=== PATIENT | female | born 1945 | race Caucasian/White ===

== ENCOUNTER 2022-01-29 08:40 | Emergency (ER) | payer MEDICARE, BC, SELFPAY ==
[2022-01-29] VITALS (18 sets, daily range): BP systolic 152–199; BP diastolic 80–123; PULSE 63–82; TEMP 37.1; O2SAT 90–94; BMI 46.1
--- NOTE | 2022-01-29 09:16 | CRLHL7_ITS ---
For Patients: As a result of the Century Cures Act, medical imaging exams and procedure reports are released immediately into your electronic medical record. You may view this report before your referring provider. If you have questions, please contact your health care provider. INDICATION: Asthma. TECHNIQUE: AP portable seated chest x-ray. FINDINGS: Minor linear fibrosis or atelectasis at the left lung base. Both lungs are otherwise clear. Normal heart size. Mild spurring of the thoracic spine. Mild degenerative narrowing and spurring of the left glenohumeral joint. IMPRESSION: No acute cardiopulmonary process identified. Dictated by Cornelius Young MD @ 01/29/2022 9:41:23 AM (Electronically Signed)
--- NOTE | 2022-01-29 09:17 | ED_ITS ---
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 She had a cold about a week ago, and whenever she gets a cold she gets asthma triggered. She has not had a cold for quite some time. She was seen in [place] [facility] urgent care noting that her blood pressure was elevated, she had an EKG and a chest x-ray that apparently were reassuring, and she was started on prednisone and was given a nebulizer but this made her very jittery and anxious and she did not take 1 of these home, nor does she use an inhaler. She does feel like her breathing is a little better but she noted her blood pressure is elevated today. On presentation here is 199/116. She has had no fever chills rigors. She was tested for COVID at home but no other test done. No leg swelling edema bleeding or clotting problems no known heart history Related Data Allergies Allergy/AdvReac Type Severity Reaction Status Date / Time No Known Drug Allergies Allergy Verified 01/29/22 09:01 Review of Systems Status of ROS: Reports: 10 or more systems reviewed and unremarkable except as noted in History and below [facility] PFS Social History Smoking Status: Unknown if ever smoked Exam Narrative: Exam Narrative: Objective: Patient denies any chest pain Vital signs show elevated blood pressure 199/116 O2 sat 93% on room air HEENT unremarkable no scleral icterus no facial asymmetry Neck is supple Chest basilar wheezes noted that clear with a deep breath Heart rhythm regular 2/6 systolic murmur occasional ectopic beat noted Abdomen obese benign nontender extremities are no edema Neurologic nonfocal Skin periphery warm and dry. Const: Vital Signs, click to edit/add: Vital Signs - 24 hr 01/29/22 08:57 01/29/22 09:16 01/29/22 09:17 Temperature 98.7 F Pulse Rate 72 Pulse Rate [Left P ulse Oximeter] 71 Blood Pressure Blood Pressure [Ri ght Upper Arm] 199/116 H Pulse Oximetry 93 92 92 Oxygen Delivery Me thod Room Air 01/29/22 09:26 01/29/22 09:27 01/29/22 09:45 Temperature Pulse Rate 79 75 75 Pulse Rate [Left P ulse Oximeter] Blood Pressure 184/104 H Blood Pressure [Ri ght Upper Arm] Pulse Oximetry 92 93 93 Oxygen Delivery Me thod 01/29/22 10:00 01/29/22 10:01 01/29/22 10:11 Temperature Pulse Rate 75 82 67 Pulse Rate [Left P ulse Oximeter] Blood Pressure 168/93 H 165/123 H Blood Pressure [Ri ght Upper Arm] Pulse Oximetry 91 92 90 Oxygen Delivery Me thod 01/29/22 10:15 Temperature Pulse Rate 68 Pulse Rate [Left P ulse Oximeter] Blood Pressure Blood Pressure [Ri ght Upper Arm] Pulse Oximetry 90 Oxygen Delivery Me thod Course Vital Signs Vital signs: Initial Vital Signs Temperature 98.7 F 01/29/22 08:57 Temperature Source Temporal Artery Scan 01/29/22 08:57 Pulse Rate 71 01/29/22 08:57 Blood Pressure 199/116 H 01/29/22 08:57 Blood Pressure Mean 143 01/29/22 08:57 Blood Pressure Position Sitting 01/29/22 08:57 Pulse Oximetry 93 01/29/22 08:57 Oxygen Delivery Method 01/29/22 08:57 Vital Signs Temperature 98.7 F 01/29/22 08:57 Pulse Rate 71 01/29/22 08:57 Blood Pressure 199/116 H 01/29/22 08:57 Pulse Oximetry 93 01/29/22 08:57 Oxygen Delivery Method 01/29/22 08:57 Temperature 98.7 F 01/29/22 08:57 Pulse Rate 74 01/29/22 11:02 Blood Pressure 152/80 H 01/29/22 11:02 Pulse Oximetry 93 01/29/22 11:02 Oxygen Delivery Method 01/29/22 08:57 Medical Decision Making MDM Narrative Medical decision making narrative: Patient is slightly improved from her asthma exacerbation from her upper respiratory infection last week. She has been on prednisone small dose for a couple of days. At this point I think I would get a repeat chest x-ray as I do not have access to the prior 1, EKG by my read shows no new ischemic changes she has got limited R-wave progression anteriorly no acute ST T wave changes occasional PVC. Will get laboratory studies give her IV fluid, IV Solu-Medrol. Will withhold a neb at this time due to making her anxious. I will also think giving her a small dose Ativan be helpful as she is quite anxious at 0.5 mg IV. Will also give her a blood pressure medication to help control this. Disposition pending clinical response and laboratory findings. Addendum: Patient's lab studies are reassuring, troponin is negative, CRP is negative, chest x-ray by my read looks unremarkablel PVC. Her EKG by my read shows limited R-wave progression anteriorly but no ischemic changes cage in PVCs. She feels multiple much better, her blood pressure is improved, she is given Lopressor and she had transient diminishment of her pulse into the 40s, but this rapidly improved. She will continue her home blood pressure medications and continue to check her blood pressure twice a day. Update her regular physician within the next 2-4 days. Return to ED sooner problems or concerns. I believe her asthma flare from her URIs improving, also she is negative for viral studies. Lab Data Labs: Lab Results 01/29/22 01/29/22 01/29/22 Range/Units 09:24 09:53 09:53 WBC 8.71 (4.50-11.00) K/uL RBC 5.62 H (4.00-5.20) m/uL Hgb 14.7 (12.0-16.0) gm/dL Hct 46.3 (33.0-51.0) % MCV 82 (80-100) fL MCH 26 (26-34) pg MCHC 32 (32-36) gm/dL RDW Coeff of Genevieve 14.4 (11.5-15.5) % Plt Count 314 (140-440) K/uL Neut % (Auto) 79.6 H (42.0-72.0) % Lymph % (Auto) 12.5 L (20-44) % [place] % (Auto) 7.2 (0.0-11.0) % Eos % (Auto) 0.3 (0.0-7.0) % Baso % (Auto) 0.3 (0.0-3.0) % Neut # (Auto) 6.90 (1.7-7.0) K/uL Lymph # (Auto) 1.10 (0.90-2.90) K/uL [place]fe # (Auto) 0.60 (0.00-0.90) K/UL Eos # (Auto) 0.03 (0.00-0.50) K/uL Baso # (Auto) 0.03 (0.00-0.30) K/uL Abs Immat Gran (auto) 0.01 (0.00-0.30) K/uL Imm/Tot Granulo (auto) 0.1 % Sodium 140 (135-149) mmol/L Potassium 3.4 L (3.6-5.1) mmol/L Chloride 98 (96-114) mmol/L Carbon Dioxide 34 H (20-32) mmol/L BUN 22 (7-30) mg/dL Creatinine 0.8 (0.5-1.5) mg/dL Estimated Creat Clear 40.83 Estimated GFR 77 ml/min Glucose 109 (60-115) mg/dL Calcium 10.5 (8.4-10.6) mg/dL Troponin I (0.01-0.04) ng/mL C-Reactive Protein 0.6 (0.5-1.0) mg/dL SARS-CoV-2 (PCR) Negative SARS-CoV-2 (Negative) Influenza Type A (PCR) Negative PCR FLU A (Negative) Influenza Type B (PCR) Negative PCR FLU B (Negative) RSV (PCR) Negative PCR RSV (Negative) 01/29/22 Range/Units 09:53 WBC (4.50-11.00) K/uL RBC (4.00-5.20) m/uL Hgb (12.0-16.0) gm/dL Hct (33.0-51.0) % MCV (80-100) fL MCH (26-34) pg MCHC (32-36) gm/dL RDW Coeff of Genevieve (11.5-15.5) % Plt Count (140-440) K/uL Neut % (Auto) (42.0-72.0) % Lymph % (Auto) (20-44) % Wolfe % (Auto) (0.0-11.0) % Eos % (Auto) (0.0-7.0) % Baso % (Auto) (0.0-3.0) % Neut # (Auto) (1.7-7.0) K/uL Lymph # (Auto) (0.90-2.90) K/uL Wolfe # (Auto) (0.00-0.90) K/UL Eos # (Auto) (0.00-0.50) K/uL Baso # (Auto) (0.00-0.30) K/uL Abs Immat Gran (auto) (0.00-0.30) K/uL Imm/Tot Granulo (auto) % Sodium (135-149) mmol/L Potassium (3.6-5.1) mmol/L Chloride (96-114) mmol/L Carbon Dioxide (20-32) mmol/L BUN (7-30) mg/dL Creatinine (0.5-1.5) mg/dL Estimated Creat Clear Estimated GFR ml/min Glucose (60-115) mg/dL Calcium (8.4-10.6) mg/dL Troponin I < 0.01 L (0.01-0.04) ng/mL C-Reactive Protein (0.5-1.0) mg/dL SARS-CoV-2 (PCR) (Negative) Influenza Type A (PCR) (Negative) Influenza Type B (PCR) (Negative) RSV (PCR) (Negative) Discharge Plan Discharge Clinical Impression: Asthma exacerbation, Hypertension Patient Disposition: Home, Self-Care Condition: Improved Additional Instructions: Rest, use the prednisone that remains at home, inhaler as needed, update regular doctor within the next 2-4 days. Return to ED sooner problems concerns difficulty with breathing or other concern problems. Would monitor her blood pressure 2 times a day and give that information regular doctor when they consult. Activity Level: Light activity Discharge Diet: Regular Stand Alone Forms: [facility] Info Instructions
[2022-01-29] MEDS: 0.9 % SODIUM CHLORIDE 500 ML 500 ML IV (10:01)
[2022-01-29] MEDS: LORazepam 2 MG/ML inj 0.5 MG IVP (10:01)
[2022-01-29] MEDS: METHYLPREDNISOLONE SOD SUCC 62.5 MG/ML (125) 125 MG IVP (10:03)
[2022-01-29] MEDS: METOPROLOL TARTRATE 1 MG/ML inj 5 MG IVP (10:07)
[2022-01-29 10:08] LABS: Basophils Absolute Auto 0.03 K/uL (0.00-0.30); Basophils Percent Auto 0.3 % (0.0-3.0); Eosinophils Absolute Auto 0.03 K/uL (0.00-0.50); Eosinophils Percent Auto 0.3 % (0.0-7.0); Hematocrit 46.3 % (33.0-51.0); Hemoglobin* 14.7 gm/dL (12.0-16.0); Immature Granulocytes Abs Auto 0.01 K/uL (0.00-0.30); Immature Granulocytes Pct Auto 0.1 %; Lymphocytes Percent Auto 12.5 % (20-44); Mean Corpuscular HGB Conc 32 gm/dL (32-36); Mean Corpuscular Hemoglobin 26 pg (26-34); Mean Corpuscular Volume 82 fL (80-100); Monocytes Percent Auto 7.2 % (0.0-11.0); Neutrophils Percent Auto 79.6 % (42.0-72.0); Platelet Count* 314 K/uL (140-440); RDW Coefficient of Variation % 14.4 % (11.5-15.5); Red Blood Count 5.62 m/uL (4.00-5.20); White Blood Count* 8.71 K/uL (4.50-11.00)
[2022-01-29 10:12] LABS: PCR FLU A Negative PCR FLU A (Negative); PCR FLU B Negative PCR FLU B (Negative); PCR RSV Negative PCR RSV (Negative)
[2022-01-29 10:16] LABS: Slide Review Reflex No
[2022-01-29 10:25] LABS: Chloride* 98 mmol/L (96-114)
[2022-01-29 10:26] LABS: Potassium* 3.4 mmol/L (3.6-5.1); Sodium* 140 mmol/L (135-149)
[2022-01-29 10:28] LABS: Creatinine* 0.8 mg/dL (0.5-1.5); Est. Creatinine Clearance* 40.83; Estimated Glomerular Filt Rate 77 ml/min
[2022-01-29 10:29] LABS: Blood Urea Nitrogen* 22 mg/dL (7-30); Carbon Dioxide* 34 mmol/L (20-32); Glucose* 109 mg/dL (60-115)
[2022-01-29 10:30] LABS: Calcium* 10.5 mg/dL (8.4-10.6)
--- NOTE | 2022-01-29 10:30 | ED.NURSE ---
Addendum entered by Magdiel Bahena RN 01/29/22 10:37: pvc monitor initiated. Original Note: Pt HR dropped to mid-30's, pt A&O, not symptomatic. MD notified. Pt HR back up to mid-60's after approx 1 min, MD updated. Will continue to monitor.
[2022-01-29 10:32] LABS: C Reactive Protein* 0.6 mg/dL (0.5-1.0)
[2022-01-29 10:45] LABS: Troponin I* < 0.01 ng/mL (0.01-0.04)
[2022-01-29 10:50] LABS: SARS PCR* Negative SARS-CoV-2 (Negative)
== END 2022-01-29 11:31 | disposition home or self-care (01) ==
PROVIDERS: Emergency Provider Family Medicine; PCP Physician Assistant
DX: J45.901 Unspecified asthma with (acute) exacerbation (principal); I10 Essential (primary) hypertension
CPT/HCPCS: 36415; 71045; 80048; 84484; 85025; 86140; 87502; 87634; 87635; 93005; 94761; 96374; 96375; 99284; 99285; J2060; J2930; J7120

== ENCOUNTER 2022-06-13 15:09 | Emergency (ER) | payer MEDICARE, BC, SELFPAY ==
[2022-06-13 15:12] VITALS: BP 173/82; PULSE 96; RESP 20; TEMP 36.8; O2SAT 96; BMI 46.1
--- NOTE | 2022-06-13 15:25 | ED.SOB ---
HPI - SOB/Dyspnea General Time Seen by Provider: 15:26 Date Seen: 06/13/22 Chief Complaint: Shortness of Breath/Dyspnea Stated Complaint: Shortness of Breath Time Seen by Provider: 06/13/22 15:25 Source: patient and RN notes reviewed Mode of arrival: ambulatory Limitations: no limitations History of Present Illness HPI Narrative: Analia is a 76-year-old female ambulatory in the ED of her own accord with concern increasing weakness, tired and shortness of breath today. She was diagnosed with a positive COVID test on May 21, tested positive through June 08. She did take Paxlovid. She was feeling better the last couple days but today she went to make food for herself, just felt overwhelmed by the thought of it. Was much more weak and tired again. [place] like she was more short of breath and became more anxious about this today. She never really had any cough or respiratory symptoms. Was more the achiness and the tired her fatigue that were her symptoms. Achiness has not returned to the level it was. She never really had any fevers. No GI symptoms. She actually felt like she has maybe a little bit more constipated instead of diarrhea on the medicine. She did have the bad taste in her mouth from the medicine. MD elicited complaint: shortness of breath Related Data Home oxygen amount: none Home Medications Medication Instructions Recorded Confirmed albuterol sulfate 90 mcg/actuation inhalation 06/13/22 aerosol inhaler diltiazem HCl 120 mg 120 mg PO DAILY 06/13/22 06/13/22 capsule,extended release 24 hr, controlled (DILT-XR) hydrochlorothiazide 25 mg tablet 25 mg PO DAILY 06/13/22 06/13/22 hydroxyzine HCl 10 mg tablet 10 mg PO QPM 06/13/22 06/13/22 lisinopril 40 mg tablet 40 mg PO DAILY 06/13/22 06/13/22 pravastatin 40 mg tablet 40 mg PO DAILY 06/13/22 06/13/22 Allergies Allergy/AdvReac Type Severity Reaction Status Date / Time No Known Drug Allergies Allergy Verified 06/13/22 15:20 Review of Systems Status of ROS: Reports: 10 or more systems reviewed and unremarkable except as noted in History and below PFSH PFSH Social History Smoking Status: Unknown if ever smoked Non-prescribed substance use: denies use Exam Const: Vital Signs, click to edit/add: Vital Signs - 24 hr 06/13/22 15:12 06/13/22 15:37 Temperature 98.3 F Pulse Rate [Pulse Oximeter] 96 Respiratory Rate 20 Blood Pressure [Ri ght Upper Arm] 173/82 H Pulse Oximetry 96 94 Oxygen Delivery Me thod Room Air Documenting provider has reviewed patient's vital signs: yes Common normals: no apparent distress, oriented x3, no limitations, healthy appearing, alert and well nourished General appearance: cooperative, comfortable, well kempt and well developed Nutritional appearance: obese HENMT: Common normals: normocephalic, head/scalp atraumatic and hearing grossly normal bilaterally Head and scalp: normocephalic and atraumatic Eye: Common normals: PERRL, EOMs intact bilaterally, conjunctivae normal and no scleral icterus Conjunctiva: conjunctiva(e) normal Pupil: PERRL Neck & C-Spine: Common normals: full ROM, no lymphadenopathy and supple Resp: Common normals: normal respiratory effort, no retractions, no use of accessory muscles and clear to auscultation bilaterally Auscultation: clear to auscultation bilaterally Cardio: Common normals: regular rate, regular rhythm, S1 normal heart sound, S2 normal heart sound, no gallops, no clicks, no murmurs and no rub Rate: regular rate Rhythm: regular rhythm Heart sounds: S1 normal and S2 normal GI: Common normals: Normal to inspection, nondistended, normoactive bowel sounds present, soft to palpation, non-tender, no hepatosplenomegaly and no masses Palpation: soft and no hepatosplenomegaly Extremity: Other: Has thick lower extremities with compression stockings on. Neuro: Common normals: oriented x3 Sensorium/orientation: alert Psych: Appearance: well kempt Course Course Hospital Course: Reassured patient that her oxygenation looked excellent on arrival at 96%. She did feel better about this. We will observe her on pulse oximetry while here to make sure she does not have any underlying hypoxia. She also worried about her heart because of COVID. Reviewed with her as easy enough to get an EKG and some basic labs including a troponin. Will also do a portable chest x-ray. This very well may be rebound phenomenon or just ongoing symptoms from having had COVID. She does understand that. We will look for COVID pneumonia, secondary pneumonia, hypoxia, will obtain a D-dimer and on consider thromboembolic disease if need be. She understands she may have to proceed on with a chest CT PE protocol. Will also consider ischemic disease in myocarditis although patient is having no chest pain. Reevaluation(s) Reevaluation #1: Reviewed with patient normal laboratory findings. No concerning changes on her chest x-ray. We reviewed that this likely represents either rebound phenomenon or potentially some lingering COVID symptoms. We did review long COVID which can happen to some people. At this time, I think she is early enough that I tried to reassure her to just rest. If she is not improving over the next couple weeks, follow up with her primary care provider. Time: 17:42 Vital Signs Vital signs: Initial Vital Signs Respiratory Effort Normal, Spontaneous, Non-Labored, Short of Breath 06/13/22 15:10 Respiratory Depth Normal 06/13/22 15:10 Respiratory Pattern Normal 06/13/22 15:10 Vital Signs Temperature 98.3 F 06/13/22 15:12 Pulse Rate 96 06/13/22 15:12 Respiratory Rate 20 06/13/22 15:12 Blood Pressure 173/82 H 06/13/22 15:12 Pulse Oximetry 96 06/13/22 15:12 Oxygen Delivery Method Room Air 06/13/22 15:12 Temperature 98.3 F 06/13/22 15:12 Pulse Rate 96 06/13/22 15:12 Respiratory Rate 20 06/13/22 15:12 Blood Pressure 173/82 H 06/13/22 15:12 Pulse Oximetry 94 06/13/22 15:37 Oxygen Delivery Method Room Air 06/13/22 15:12 MDM - SOB/Dyspnea Lab Data Attestation: I reviewed the patient's lab results. Labs: Lab Results 06/13/22 06/13/22 Range/Units 15:33 15:53 WBC 8.57 (4.50-11.00) K/uL RBC 5.35 H (4.00-5.20) m/uL Hgb 14.0 (12.0-16.0) gm/dL Hct 44.8 (33.0-51.0) % MCV 84 (80-100) fL MCH 26 (26-34) pg MCHC 31 L (32-36) gm/dL RDW Coeff of Genevieve 14.2 (11.5-15.5) % Plt Count 306 (140-440) K/uL Neut % (Auto) 78.1 H (42.0-72.0) % Lymph % (Auto) 14.4 L (20-44) % [place] % (Auto) 6.1 (0.0-11.0) % Eos % (Auto) 1.2 (0.0-7.0) % Baso % (Auto) 0.2 (0.0-3.0) % Neut # (Auto) 6.70 (1.7-7.0) K/uL Lymph # (Auto) 1.20 (0.90-2.90) K/uL [place] # (Auto) 0.50 (0.00-0.90) K/UL Eos # (Auto) 0.10 (0.00-0.50) K/uL Baso # (Auto) 0.02 (0.00-0.30) K/uL D-Dimer Quant (PE/DVT) 0.56 H (0.00-0.50) ug/ml Sodium 139 (135-149) mmol/L Potassium 3.6 (3.6-5.1) mmol/L Chloride 98 (96-114) mmol/L Carbon Dioxide 34 H (20-32) mmol/L BUN 19 (7-30) mg/dL Creatinine 0.7 (0.5-1.5) mg/dL Estimated Creat Clear 40.83 Estimated GFR 91 ml/min Glucose 115 (60-115) mg/dL Calcium 9.7 (8.4-10.6) mg/dL Total Bilirubin 0.3 (0.1-1.5) mg/dL AST 26 (12-35) U/L ALT 24 (4-35) U/L Alkaline Phosphatase 79 (40-150) U/L C-Reactive Protein 1.0 (0.5-1.0) mg/dL NT-Pro-B Natriuret Pep 226 pg/mL Total Protein 7.9 (6.0-8.3) g/dL Albumin 4.3 (3.3-5.0) g/dL POC Troponin I 0.00 L (0.01-0.04) ng/ml Imaging Data Chest x-ray: Attestation: I have reviewed the pertinent imaging results. My impression: I see no acute pathology on my preliminary review, wait radiology over-read. Radiologist's impression: Patient: ANALIA ROSENBERG Facility:?[facility] Patient ID:?[id number] Site Patient ID:?[id number]. Site :?[id number] Study:?XRay Chest PCXR-06/13/2022 4:24:58 PM Ordering Physician:Imtiaz Mac Final Report: INDICATION: Shortness of breath. Recent COVID. TECHNIQUE: Chest 1 view(s) COMPARISON: Chest radiograph dated 03/31/2021. FINDINGS: Cardiomediastinal silhouette and pulmonary vasculature are normal. No focal consolidation. No significant pleural effusion, noting that the left costophrenic angle is excluded from field of view. No pneumothorax. No acute chest wall abnormality. IMPRESSION: No focal consolidation. Dictated by Kari Syed MD @ 06/13/2022 5:46:15 PM (Electronic Signature) ECG Data Attestation: I personally reviewed and interpreted this ECG as follows: (Sinus rhythm, 88 beats per minute, PVCs seen. No acute ischemic change or infarct noted. QT corrected 442 milliseconds.) ECG interpretation date: 06/13/22 ECG interpretation time: 16:57 Prior ECG tracings: not available for review Critical Care Time Critical Care Time Critical Care Time: No Discharge Plan Discharge Clinical Impression: COVID-19 Patient Disposition: Home, Self-Care Condition: Stable Instructions: COVID-19 (Coronavirus Disease 2019) (ED), Long COVID (ED) Additional Instructions: Recommend continued rest is needed. You may increase her activity as you feel up to it. If you are not improving over the next couple weeks, do recommend follow up in clinic with your primary care provider as you may be developing long COVID. Certainly right now, this still could be rebound phenomenon from having taken the Paxlovid. Certainly, if you feel you are worsening and develop fever, it cough, increased shortness of breath or respiratory symptoms, chest pain, other concerns, do recommend re-evaluation. Prescriptions: No Action pravastatin 40 mg tablet 40 mg PO DAILY diltiazem HCl [DILT-XR] 120 mg capsule,ext.rel 24h degradable 120 mg PO DAILY hydrochlorothiazide 25 mg tablet 25 mg PO DAILY albuterol sulfate 90 mcg/actuation HFA aerosol inhaler inhalation hydroxyzine HCl 10 mg tablet 10 mg PO QPM lisinopril 40 mg tablet 40 mg PO DAILY Follow Up/Referrals: Cherry López PA [Primary Care Provider] - Stand Alone Forms: [facility] Info Instructions
[2022-06-13 15:37] VITALS: O2SAT 94
--- NOTE | 2022-06-13 15:37 | CRLHL7_ITS ---
For Patients: As a result of the Cures Act, medical imaging exams and procedure reports are released immediately into your electronic medical record. You may view this report before your referring provider. If you have questions, please contact your health care provider. INDICATION: Shortness of breath. Recent COVID. TECHNIQUE: Chest 1 view(s) COMPARISON: Chest radiograph dated 03/31/2021. FINDINGS: Cardiomediastinal silhouette and pulmonary vasculature are normal. No focal consolidation. No significant pleural effusion, noting that the left costophrenic angle is excluded from field of view. No pneumothorax. No acute chest wall abnormality. IMPRESSION: No focal consolidation. Dictated by Kari Syed MD @ 06/13/2022 5:46:15 PM (Electronically Signed)
[2022-06-13 16:14] LABS: Basophils Absolute Auto 0.02 K/uL (0.00-0.30); Basophils Percent Auto 0.2 % (0.0-3.0); Eosinophils Percent Auto 1.2 % (0.0-7.0); Hematocrit 44.8 % (33.0-51.0); Lymphocytes Percent Auto 14.4 % (20-44); Mean Corpuscular HGB Conc 31 gm/dL (32-36); Mean Corpuscular Hemoglobin 26 pg (26-34); Mean Corpuscular Volume 84 fL (80-100); Monocytes Percent Auto 6.1 % (0.0-11.0); Neutrophils Percent Auto 78.1 % (42.0-72.0); Platelet Count* 306 K/uL (140-440); RDW Coefficient of Variation % 14.2 % (11.5-15.5); Red Blood Count 5.35 m/uL (4.00-5.20); White Blood Count* 8.57 K/uL (4.50-11.00)
[2022-06-13 16:38] LABS: Chloride* 98 mmol/L (96-114)
[2022-06-13 16:39] LABS: Albumin* 4.3 g/dL (3.3-5.0); Potassium* 3.6 mmol/L (3.6-5.1); Sodium* 139 mmol/L (135-149)
[2022-06-13 16:41] LABS: Bilirubin Total* 0.3 mg/dL (0.1-1.5); Creatinine* 0.7 mg/dL (0.5-1.5); D Dimer Quantitative* 0.56 ug/ml (0.00-0.50); Est. Creatinine Clearance* 40.83; Estimated Glomerular Filt Rate 91 ml/min
[2022-06-13 16:42] LABS: Alanine Aminotransferase* 24 U/L (4-35); Alkaline Phosphatase* 79 U/L (40-150); Aspartate Amino Transferase* 26 U/L (12-35); Blood Urea Nitrogen* 19 mg/dL (7-30); Carbon Dioxide* 34 mmol/L (20-32); Glucose* 115 mg/dL (60-115); Total Protein* 7.9 g/dL (6.0-8.3)
[2022-06-13 16:43] LABS: Calcium* 9.7 mg/dL (8.4-10.6)
[2022-06-13 16:52] LABS: NT Pro B Type NatriureticPept* 226 pg/mL
[2022-06-13 16:57] LABS: Slide Review Reflex No
== END 2022-06-13 17:55 | disposition home or self-care (01) ==
PROVIDERS: Emergency Provider Family Medicine; PCP Physician Assistant
DX: U07.1 COVID-19 (principal)
CPT/HCPCS: 36415; 71045; 80053; 83880; 84484; 85025; 85379; 86140; 93005; 94761; 99283; 99284; 99285

== ENCOUNTER 2024-07-22 08:25 | Outpatient (CLI) | payer MEDICARE, BC, SELFPAY ==
--- NOTE | 2024-07-22 09:40 | P.ANES_ITS ---
Anesthesia Charges Start Date/Time Anesthesia Start Date: 07/22/24 Anesthesia Start Time: 09:07 Stop Date/Time Anesthesia Stop Date: 07/22/24 Anesthesia Stop Time: 09:37 Summary Extremes of Age - Over 70 or under 1: EXECUTIVE ADMINISTRATIVE ASST Coding CPT Codes CPT Codes: ANES LWR INTST SCR COLSC - 48668 ([id number]) P3 - PATIENT W/SEVERE SYS DISEASE, QK - PICKER TENDER HELPER 2-4 CNCRNT ANES PROC, QX - EXECUTIVE ADMINISTRATIVE ASST SVC W/ MD MED DIRECTION Additional Codes: Summary - Extremes of Age - Over 70 or under 1: EXECUTIVE ADMINISTRATIVE ASST ([id number])
--- NOTE | 2024-07-22 09:40 | W.ANESCHARGE ---
Anesthesia Charges Start Date/Time Anesthesia Start Date: 07/22/24 Anesthesia Start Time: 09:07 Stop Date/Time Anesthesia Stop Date: 07/22/24 Anesthesia Stop Time: 09:37 Summary Extremes of Age - Over 70 or under 1: DATA MANAGEMENT MANAGER Coding CPT Codes CPT Codes: ANES LWR INTST SCR COLSC - 29003 ([id number]) P3 - PATIENT W/SEVERE SYS DISEASE, QK - STOCK WETTER 2-4 CNCRNT ANES PROC, QX - DATA MANAGEMENT MANAGER SVC W/ MD MED DIRECTION Additional Codes: Summary - Extremes of Age - Over 70 or under 1: DATA MANAGEMENT MANAGER ([id number])
--- NOTE | 2024-07-22 09:42 | W.ANESCHARGE ---
Anesthesia Charges Start Date/Time Anesthesia Start Date: 07/22/24 Anesthesia Start Time: 09:07 Stop Date/Time Anesthesia Stop Date: 07/22/24 Anesthesia Stop Time: 09:37 Summary Extremes of Age - Over 70 or under 1: MDA Coding CPT Codes CPT Codes: ANES LWR INTST SCR COLSC - 88459 ([id number]) QK - INFORMATION MANAGEMENT MANAGER 2-4 CNCRNT ANES PROC, QX - AUTOMATIC BANDSAW TENDER SVC W/ MD MED DIRECTION, P3 - PATIENT W/SEVERE SYS DISEASE Additional Codes: Summary - Extremes of Age - Over 70 or under 1: MDA ([id number])
== END 2024-07-22 08:26 | disposition home or self-care (01) ==
LOC: OP CLINIC 08:28
PROVIDERS: PCP Student in an Organized Health Care Education/Training Program; Visit Provider Internal Medicine Gastroenterology
DX: Z12.11 Encounter for screening for malignant neoplasm of colon (principal); D12.2 Benign neoplasm of ascending colon; Z86.0101 Personal history of adenomatous and serrated colon polyps; Q43.8 Other specified congenital malformations of intestine
CPT/HCPCS: 00811; 00812; 45380; 99100; J2704